=== PATIENT | female | born 1995 | race Caucasian/White ===

== ENCOUNTER 2019-07-24 20:02 | Emergency (ER) | payer OTHER ==
[~2019-07-24] VITALS: Ht 172.7 cm; Wt 125.6 kg
[2019-07-24 20:29] VITALS: BP 150/72; PULSE 88; RESP 18; Ht 172.7 cm; Wt 125.6 kg
== END 2019-07-24 23:35 | disposition home or self-care (01) ==
LOC: FTE 20:02
DX: N92.1 Excessive and frequent menstruation with irregular cycle (principal); Z86.73 Personal history of transient ischemic attack (TIA), and cerebral infarction without residual deficits
CPT/HCPCS: 76830; 76856; 80048; 81001; 81025; 85025; 85610; 85730; Z7502